=== PATIENT | female | born 1960 | race Caucasian/White ===

== ENCOUNTER 2016-06-07 22:06 | Emergency (ER) | payer OTHER ==
[2016-06-07 22:17] VITALS: BP 109/60; PULSE 88; RESP 18; TEMP 99.1; O2SAT 93
[2016-06-07] MEDS ORDERED: IBUPROFEN 200 MG TAB PO ONE (22:17)
--- NOTE | 2016-06-07 22:18 | UCPHY ---
H & P Patient Type: Established Chief Complaint Nursing Narrative: co of cough, and chills x 10 days HPI/ROS: HPI CHIEF COMPLAINT: Cough, shortness of breath, chills HISTORY OF PRESENT ILLNESS: the patient very pleasant 55-year-old female denies any significant medical history does not take any medications, she presents to urgent care 1030 at night with cough, congestion, sore throat and bronchitic sounding cough with chills. She tells me she has generalized weakness, she is not vomiting no diarrhea, no chest pain no significant shortness of breath. She has a bronchitic sounding cough. Intermittent wheezing. Past Medical History: No significant medical history Past Surgical History: no significant surgical history Social History: denies use of drugs alcohol tobacco products Family History: noncontributory ROS REVIEW OF SYSTEMS: A comprehensive 10 point review of systems is otherwise negative aside from elements mentioned in the history of present illness. Exam Constitutional triage nursing summary reviewed, vital signs reviewed, awake/ alert. Eyes normal conjunctivae and sclera, EOMI, PERRLA. HENT normal inspection, atraumatic, moist mucus membranes, no epistaxis, neck supple/ no meningismus, no raccoon eyes. Respiratory bronchitic sounding cough, normal breath sounds, no respiratory distress, Cardiovascular rate normal, regular rhythm, no murmur, no edema, distal pulses normal. Gastrointestinal soft, non-tender, no rebound, no guarding, normal bowel sounds, no distension, no pulsatile mass. Genitourinary no CVA tenderness. Musculoskeletal no midline vertebral tenderness, full range of motion, no calf swelling, no tenderness of extremities, no meningismus, good pulses, neurovascularly intact. Skin pink, warm, & dry, no rash, skin atraumatic. Neurologic awake, alert and oriented x 3, AAOx3, moves all 4 extremities equally, motor intact, sensory intact, CN II-XII intact, normal cerebellar, normal vision, normal speech. Psychiatric normal mood/affect. Heme/Lymph/Immune no lymphadenopathy. Differential Diagnosis: includes but is not limited to in a particular order, viral syndrome, upper respiratory tract infection, bacterial pneumonia, bacterial pneumonia, influenza Medical Decision Making: this patient appears well here nontoxic no acute distress vital signs have been reviewed normal oxygen level no fever. Patient be started on azithromycin, Robitussin, prednisone. She will prescription for albuterol inhaler, Robitussin, prednisone, azithromycin guaifenesin. She understands drink lots of fluids, return emergency room if there is any worsening symptoms questions or concerns. Lungs are clear on exam no indication to perform a chest x-ray. Source: Patient - Personal History LMP (Females 10-55): Post Menopausal - Medical/Surgical History Hx Asthma: No Hx Chronic Respiratory Disease: No Hx Diabetes: No Hx Cardiac Disease: No Hx Renal Disease: No Hx Cirrhosis: No Hx Alcoholism: No Hx HIV/AIDS: No Hx Splenectomy or Spleen Trauma: No Other PMH: denies both - Family History Significant Family History: No pertinent family hx - Social History Smoking Status: Never smoked Constitutional: Initial Vital Signs Temperature (C) 37.3 C 06/07/16 22:15 Heart Rate 88 06/07/16 22:15 Respiratory Rate 18 06/07/16 22:15 Blood Pressure 109/60 06/07/16 22:15 O2 Sat (%) 93 06/07/16 22:15 O2 Delivery Mode Room Air Allergies/Adverse Reactions: No Known Allergies Allergy (Verified 06/07/16 22:14) Home Medications: Medication Instructions Recorded AZITHROMYCIN [Z-PACK] 250 mg PO DAILY #6 tab 06/07/16 Albuterol [Proventil Inhaler HFA 1 - 2 puffs IH Q4H #1 mdi 06/07/16 (*)] Guaifenesin [Guaifenesin ER] 600 mg PO BID #14 tab.er.12h 06/07/16 Ibuprofen [Motrin (*)] 800 mg PO Q6-8PRN #7 tab 06/07/16 predniSONE 60 mg PO DAILY #15 tab 06/07/16 Medical Decision Making - Data Points Medications Given: Discontinued Medications Ibuprofen (Motrin) 600 mg PO EDNOW ONE Stop: 06/07/16 22:18 Last Admin: 06/07/16 22:21 Dose: 600 mg Departure - Departure Disposition: Home, Routine, Self-Care Clinical Impression: Bronchitis Condition: Good Instructions: Acute Bronchitis (ED) Additional Instructions: 1. Drink lots of fluids 2. return to the urgent care or emergency room if you have any worsening symptoms questions or concerns. Prescriptions: Albuterol [Proventil Inhaler HFA (*)] 1 - 2 puffs IH Q4H #1 mdi AZITHROMYCIN [Z-PACK] 250 mg PO DAILY #6 tab Guaifenesin [Guaifenesin ER] 600 mg PO BID #14 tab.er.12h Ibuprofen [Motrin (*)] 800 mg PO Q6-8PRN #7 tab predniSONE 60 mg PO DAILY #15 tab - PQRS PQRS Measurement: n/a
[2016-06-07] MEDS ORDERED: IBUPROFEN 600 MG TAB PO ONE (22:19)
[2016-06-07] MEDS ORDERED: guaiFENesin/CODEINE PHOS 10 ML UDCUP PO ONE (22:24)
[2016-06-07] MEDS ORDERED: AZITHROMYCIN 250 MG TAB PO ONE (22:24)
[2016-06-07] MEDS ORDERED: predniSONE 20 MG TAB PO ONE (22:24)
[2016-06-07] MEDS ORDERED: HYDROCODONE/APAP 5/325 TAB PO ONE (22:28)
== END 2016-06-07 22:46 | disposition home or self-care (01) ==
LOC: CED 22:06
DX: J40 Bronchitis, not specified as acute or chronic (principal)
CPT/HCPCS: 99214-PO; G0463-PO

== ENCOUNTER → 2017-01-20 | Outpatient (CLI) | payer OTHER | LOC: FIMAGING 12:03 | PROVIDERS: ATTEND Physician Assistant Medical | DX: Z12.31 Encounter for screening mammogram for malignant neoplasm of breast (principal) | CPT/HCPCS: G0202 ==

== ENCOUNTER → 2018-01-24 | Outpatient (CLI) | payer OTHER | LOC: FIMAGING 12:04 | PROVIDERS: ATTEND Physician Assistant Medical | DX: Z12.31 Encounter for screening mammogram for malignant neoplasm of breast (principal) ==